=== PATIENT | female | born 1925 | race Caucasian/White ===

== ENCOUNTER 2016-07-23 07:52 | Day surgery (SDC) | payer MEDICARE, BC ==
[~2016-07-23] VITALS: Ht 154.9 cm; Wt 83.2 kg
[2016-07-23] VITALS (450 sets, daily range): BP systolic 119–195; BP diastolic 59–115; PULSE 72–125; TEMP 98.1–98.9; O2SAT 91–98
[~2016-07-23 07:52] MED LIST: CALCIUM 600MG+D1 TAB PO; CARDIZEM CD 12120 MG PO; CEFTIN 250250 MG/TAB PO; CHLOR TRIMETON; COLACE 100100 MG/CAP PO; COZAAR 25MG25 MG/TAB PO; CRANBERRY PO; CRANBERRY500 M3 PO; ELIQUIS 5MG PO; ESTRACE0.1 MG/GM VG; FLONASEALLERGY NS; FOSINOPRIL SODI PO; GAS-X EXTRA ST125 MG PO; GLUCOPHAGE XR500 M1 PO; HAIRSKINNAILS PO; KENALOG TOP; KENALOG-1010 MG/ML TP; LIPITOR 10MG10 MG PO; LOW DOSE ASPIRI81 MG PO; MACRODANTIN50 MG/CA1 PO; MULTAQ400 MG PO; NORVASC 5MG5 MG/TAB PO; OCUVITE1 TA1 PO; PREMARIN .3MG0.3 MG PO; PREMARIN0.3 MG PO; PROAIR HFA; PROBIOTIC-MAJOR PO; PROMETHAZINE HC25 M2 PO; REFRESH TEARS 115 ML OP; RT ADVAIR 128 DISKUS IH; SIMETHICONE 125 MG PO; SYSTANE 0.4%-0.1 SOL OP; SYSTANE OU; TINACTIN1% TP; TYLENOL 500MG500 MG PO; TYLENOL 8 HR PO; TYLENOL PM EXTR1 CAP PO; VITAMIN B-1000 MCG/T PO; ZYRTEC 10MG10 MG PO; [UNRECOGNIZED DRUG - OTHER] PO; [UNRECOGNIZED DRUG - OTHER] PO
[2016-07-23 09:01] LABS: HEMATOCRIT 37.9 % (37.0-47.0); HEMOGLOBIN 12.8 g/dl (12.5-16.0); MEAN CELL VOLUME 89 fl (80.0-100.0); MEAN CORPUSCULAR HEMOGLOBIN 30 pg (27.0-31.0); MEAN CORPUSCULAR HGB CONC 34 g/dl (33.0-37.0); MEAN PLATELET VOLUME 11.3 fl (7.4-10.4); PLATELET COUNT 198 K/mm3 (130-400); RED BLOOD COUNT 4.27 M/mm3 (4.10-5.30); REDCELL DISTRIBUTION WIDTH-CV 12.2 % (11.5-14.5); WHITE BLOOD COUNT 6.7 K/mm3 (4.8-10.8)
[2016-07-23 09:08] LABS: INR 1.5 (0.8-3.0); PROTHROMBIN TIME 17.3 SECONDS (9.7-12.8)
[2016-07-23] MEDS ORDERED: RT ALBUTER2.5 MG/0.5 IH (09:15)
[2016-07-23] MEDS ORDERED: COLACE 100100 MG/CAP PO (09:17)
[2016-07-23] MEDS ORDERED: ESTRACE0.1 MG/GM VG (09:21)
[2016-07-23] MEDS ORDERED: FLONASEALLERGY NS (09:24)
[2016-07-23] MEDS ORDERED: GAS RELIEF125 MG PO (09:24)
[2016-07-23] MEDS ORDERED: PREMARIN .3MG0.3 MG PO (09:25)
[2016-07-23] MEDS ORDERED: COZAAR100 MG PO (09:28)
[2016-07-23] MEDS ORDERED: ZOFRAN ODT8 MG PO (09:29)
[2016-07-23] MEDS ORDERED: ZYRTEC 10MG10 MG PO (09:30)
[2016-07-23 09:33] LABS: CALCIUM 9.3 mg/dL (8.4-10.2); CREATININE, serum 1.08 mg/dL (0.52-1.25); POTASSIUM 4.1 mmol/L (3.4-5.0)
[2016-07-24] VITALS (757 sets, daily range): BP systolic 149–170; BP diastolic 61–78; PULSE 69–82; TEMP 97.8–99.6; O2SAT 88–99
== END 2016-07-24 14:00 | disposition home or self-care (01) ==
LOC: EUO 07:52 → ICU 11:25 → EUO 07-24 14:00
PROVIDERS: Internal Medicine Interventional Cardiology
DX: I48.0 Paroxysmal atrial fibrillation (principal); I34.0 Nonrheumatic mitral (valve) insufficiency; I10 Essential (primary) hypertension; E78.5 Hyperlipidemia, unspecified; E11.9 Type 2 diabetes mellitus without complications; F17.210 Nicotine dependence, cigarettes, uncomplicated; Z85.3 Personal history of malignant neoplasm of breast; Z79.899 Other long term (current) drug therapy; Z79.01 Long term (current) use of anticoagulants
CPT/HCPCS: OP; J0282; J2250; J3010; J7060; J7614